=== PATIENT | male | born 1930 | race Caucasian/White ===

== ENCOUNTER 2016-10-26 11:45 | Inpatient (IN) | payer OTHER, MEDICARE ==
[2016-10-26] VITALS (8 sets, daily range): BP systolic 107–166; BP diastolic 67–95
[~2016-10-26] VITALS: Ht 175.3 cm; Wt 77.8 kg
[2016-10-26 13:25] LABS: HEMATOCRIT 46.3 % (38.0-50.0); MCH 33.9 PG (29.0-34.0); MCHC 36.5 G/DL (30.0-36.0); MCV 92.8 FL (86-99); MEAN PLAT.VOLUME 10.6 uM^3 (9.0-12.4); PLATELET COUNT 92 K/uL (156-360); RBC DIS.WIDTH-CV 12.4 % (11.8-14.6); RBC DIS.WIDTH-SD 40.9 % (39-53); RED BLOOD COUNT 4.99 M/uL (4.00-5.50); WHITE BLOOD COUNT 10.5 K/uL (4.1-10.2)
[2016-10-26] MEDS ORDERED: FINASTERIDE5 MG PO (13:40)
[2016-10-26] MEDS ORDERED: ROSUVASTATIN CAL5 MG PO (13:40)
[2016-10-26] MEDS ORDERED: PRAMIPEXOLE DI0.5 MG PO (13:40)
[2016-10-26] MEDS ORDERED: AMLODIPINE BES2.5 MG PO (13:41)
[2016-10-26] MEDS ORDERED: NORCO 5/3251 TABLET PO (13:41)
[2016-10-26] MEDS ORDERED: CLONAZEPAM1 MG PO (13:41)
[2016-10-26] MEDS ORDERED: ACEBUTOLOL HCL200 MG PO (13:42)
[2016-10-26] MEDS ORDERED: LISINOPRIL40 MG PO (13:42)
[2016-10-26 13:59] LABS: CHLORIDE 106 mEq/L (99-109); POTASSIUM 4.1 mEq/L (3.7-5.4); SODIUM 139 mEq/L (136-147)
[2016-10-26 14:01] LABS: GLUCOSE 130 mg/dL (70-99)
[2016-10-26 14:02] LABS: ANION GAP 12 MEQ/L (2-14)
[2016-10-26 14:05] LABS: GFR ESTIMATE (CALCULATED) > 59 mL/min/
[2016-10-26 14:06] LABS: UREA NITROGEN (BUN) 23 mg/dL (9-23)
[2016-10-26 14:12] LABS: TROP-I INTERPRETATION NEGATIVE; TROPONIN-I < 0.01 ng/mL (0.0-0.30)
[2016-10-26 14:38] LABS: ADD MIUA? NO; BILIRUBIN NEGATIVE; BLOOD NEGATIVE; COLOR YELLOW ((YELLOW)); GLUCOSE (STRIP) NEGATIVE; KETONES TRACE; LEUKOCYTES NEGATIVE; NITRITE NEGATIVE; PROTEIN (STRIP) NEGATIVE; SPECIFIC GRAVITY 1.016 (1.000-1.030); UCUL ADDED? NO; UROBILINOGEN 0.2 MG/DL (0.2-1.0)
[2016-10-26 14:49] LABS: INTER. NORMALIZED RATIO 1.2; PROTHROMBIN TIME 11.8 (9.2-11.2)
[2016-10-26 21:40] LABS: METH RESISTANT S AUREUS PCR NEGATIVE (NEGATIVE)
[2016-10-26 21:42] LABS: PROBE CHECK PASS; SPECIMEN PROCESSING CONTROL PASS
[2016-10-27] VITALS: BP 117/80
[2016-10-27 01:00] VITALS: BP 134/62
[2016-11-07] MEDS ORDERED: AUGMENTIN875 MG PO ×2 (11:31→11:32)
== END 2016-10-27 01:07 | disposition short-term general hospital (02) | DRG 83 ==
LOC: EME 11:45 → EDOF 16:57 → 4WEST 19:59
PROVIDERS: Emergency Medicine; Surgery
DX: S06.6X9A Traumatic subarachnoid hemorrhage with loss of consciousness of unspecified duration, initial encounter (principal); S05.92XA Unspecified injury of left eye and orbit, initial encounter; H46.8 Other optic neuritis; S02.19XA Other fracture of base of skull, initial encounter for closed fracture; S02.2XXA Fracture of nasal bones, initial encounter for closed fracture; S02.82XA Fracture of other specified skull and facial bones, left side, initial encounter for closed fracture; S70.02XA Contusion of left hip, initial encounter; S40.012A Contusion of left shoulder, initial encounter; H11.32 Conjunctival hemorrhage, left eye; W00.0XXA Fall on same level due to ice and snow, initial encounter; M43.6 Torticollis; I10 Essential (primary) hypertension; E78.5 Hyperlipidemia, unspecified; N40.0 Benign prostatic hyperplasia without lower urinary tract symptoms; F41.9 Anxiety disorder, unspecified; I25.10 Atherosclerotic heart disease of native coronary artery without angina pectoris; I25.2 Old myocardial infarction; Z95.1 Presence of aortocoronary bypass graft; Z79.82 Long term (current) use of aspirin; Z85.828 Personal history of other malignant neoplasm of skin; Y92.014 Private driveway to single-family (private) house as the place of occurrence of the external cause; Y93.89 Activity, other specified; Y99.8 Other external cause status; I44.0 Atrioventricular block, first degree
CPT/HCPCS: 70450; 70486; 73030; 73502; 80048; 80053; 81003; 84484; 85027; 85610; 87641; 93005; 99281; 99285; J1170; J1953; J2405; J2930; J7050

== ENCOUNTER 2016-11-04 12:42 | Inpatient (IN) | payer OTHER, MEDICARE ==
[~2016-11-04] VITALS: Ht 160 cm; Wt 68.1 kg
[~2016-11-04 12:42] MED LIST: ACEBUTOLOL HCL200 MG PO; AMLODIPINE BES2.5 MG PO; CLONAZEPAM1 MG PO; FINASTERIDE5 MG PO; LISINOPRIL40 MG PO; NORCO 5/3251 TABLET PO; PRAMIPEXOLE DI0.5 MG PO; ROSUVASTATIN CAL5 MG PO
[2016-11-04 15:49] LABS: HEMATOCRIT 37.7 % (38.0-50.0); MCH 34.2 PG (29.0-34.0); MCHC 35.5 G/DL (30.0-36.0); MCV 96.2 FL (86-99); MEAN PLAT.VOLUME 9.4 uM^3 (9.0-12.4); RBC DIS.WIDTH-CV 12.6 % (11.8-14.6); RBC DIS.WIDTH-SD 42.4 % (39-53)
[2016-11-04 15:50] LABS: PLATELET COUNT 120 K/uL (156-360); RED BLOOD COUNT 3.92 M/uL (4.00-5.50); WHITE BLOOD COUNT 5.6 K/uL (4.1-10.2)
[2016-11-04 15:55] LABS: CHLORIDE 104 mEq/L (99-109); POTASSIUM 3.9 mEq/L (3.7-5.4); SODIUM 137 mEq/L (136-147)
[2016-11-04 15:57] LABS: GLUCOSE 103 mg/dL (70-99)
[2016-11-04 15:58] LABS: ANION GAP 7 MEQ/L (2-14)
[2016-11-04 15:59] LABS: TOTAL BILIRUBIN 0.7 mg/dL (0.0-1.0)
[2016-11-04 16:01] LABS: ALKALINE PHOSPHATASE 69 IU/L (3-129); GFR ESTIMATE (CALCULATED) > 59 mL/min/
[2016-11-04 16:02] LABS: UREA NITROGEN (BUN) 24 mg/dL (9-23)
[2016-11-04] MEDS ORDERED: KEPPRA1000 MG PO (16:38)
[2016-11-04 17:31] LABS: ADD MIUA? NO; BILIRUBIN NEGATIVE; BLOOD NEGATIVE; COLOR YELLOW ((YELLOW)); GLUCOSE (STRIP) NEGATIVE; KETONES NEGATIVE; LEUKOCYTES NEGATIVE; NITRITE NEGATIVE; PROTEIN (STRIP) NEGATIVE; SPECIFIC GRAVITY 1.018 (1.000-1.030); UCUL ADDED? NO
[2016-11-04 19:31] VITALS: BP 141/64
[2016-11-05] VITALS: BP 152/71
[2016-11-05 07:35] VITALS: BP 148/67
[2016-11-05 13:41] LABS: METH RESISTANT S AUREUS PCR NEGATIVE (NEGATIVE)
[2016-11-05 13:42] LABS: PROBE CHECK PASS; SPECIMEN PROCESSING CONTROL PASS
[2016-11-05 15:22] VITALS: BP 97/50
[2016-11-06] VITALS: BP 158/68
[2016-11-06 07:58] VITALS: BP 139/69
[2016-11-06] MEDS ORDERED: LABETALOL HCL100 MG PO (13:35)
[2016-11-07] MEDS ORDERED: AUGMENTIN875 MG PO ×2 (11:31→11:32)
== END 2016-11-06 14:50 | disposition home health service (06) | DRG 193 ==
LOC: EME → EDBD 12:42 → EME 12:42 → EDSEX 12:42 → EDOF 16:40 → 5SOUTH 19:27
PROVIDERS: Emergency Medicine; Student in an Organized Health Care Education/Training Program
DX: J18.9 Pneumonia, unspecified organism (principal); S06.6X9A Traumatic subarachnoid hemorrhage with loss of consciousness of unspecified duration, initial encounter; G93.41 Metabolic encephalopathy; W19.XXXA Unspecified fall, initial encounter; S05.92XS Unspecified injury of left eye and orbit, sequela; D69.6 Thrombocytopenia, unspecified; R33.9 Retention of urine, unspecified; E78.5 Hyperlipidemia, unspecified; I10 Essential (primary) hypertension; N40.1 Benign prostatic hyperplasia with lower urinary tract symptoms; I25.10 Atherosclerotic heart disease of native coronary artery without angina pectoris; Z95.5 Presence of coronary angioplasty implant and graft; G24.3 Spasmodic torticollis; I44.0 Atrioventricular block, first degree
CPT/HCPCS: 70450; 71010; 80053; 81003; 83605; 85027; 87040; 87070; 87205; 87449; 87641; 93005; 99281; 99285; J0692; J2543; J3370; J7030; J7050